=== PATIENT | female | born 2000 | race Caucasian/White ===

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

== ENCOUNTER 2021-01-02 20:12 | Emergency (ER) | payer OTHER ==
[~2021-01-02] VITALS: Ht 149.9 cm; Wt 60.3 kg
[2021-01-02 20:21] VITALS: BP 122/64
--- NOTE | 2021-01-02 20:22 | NUR ---
To Ed bed 02
--- NOTE | 2021-01-02 20:26 | NUR ---
see complete assessment.
[2021-01-02] MEDS ORDERED: KETOROLAC 30 MG/ML VIAL IVP ONE (21:20)
[2021-01-02 21:34] LABS: BASOPHILS % (AUTO) 0.2 % (0.0-2.0); EOSINOPHILS # (AUTO) 0.1 K/uL (0-0.4); EOSINOPHILS % (AUTO) 0.8 % (0.0-4.0); HEMATOCRIT 38.4 % (36-48); HEMOGLOBIN 12.9 g/dL (12.0-16.0); LYMPHOCYTES # (AUTO) 2.4 K/uL (2.5-16.5); LYMPHOCYTES % (AUTO) 25.8 % (20.5-51.1); MEAN CORPUSCULAR HEMOGLOBIN 30 pg (27-31); MEAN CORPUSCULAR HGB CONC 34 g/dL (33-37); MEAN CORPUSCULAR VOLUME 88.4 fL (80-94); MONOCYTES # (AUTO) 0.6 K/uL (0.8-1.0); MONOCYTES % (AUTO) 6.5 % (1.7-9.3); NEUTROPHILS # (AUTO) 6.3 K/uL (1.8-7.7); NEUTROPHILS % (AUTO) 66.7 % (42.2-75.2); PLATELET COUNT (AUTO) 332 K/uL (140-450); RED BLOOD CELL COUNT(AUTO) 4.34 MIL/uL (4.20-5.40); RED CELL DISTRIBUTION WIDTH 13.9 % (11.6-13.7); WHITE BLOOD COUNT (AUTO) 9.4 K/uL (4.5-11.0)
[2021-01-02] MEDS ORDERED: KETOROLAC 30 MG/ML VIAL IM ONE (21:35)
[2021-01-02 21:48] LABS: ALBUMIN 3.8 g/dL (3.4-5.0); ANION GAP 10.4 (8-16); CARBON DIOXIDE 30.3 mmol/L (21-32); CREATININE 0.6 mg/dL (0.6-1.3); POTASSIUM 3.7 mmol/L (3.5-5.1); TOTAL BILIRUBIN 0.2 mg/dL (0.0-1.0)
--- NOTE | 2021-01-02 21:58 | NUR ---
US at bedside.
[2021-01-02 23:31] VITALS: BP 121/71
--- NOTE | 2021-01-02 23:51 | NUR ---
Patient discharged with v/s stable. Written and verbal after care instructions given and explained. Patient verbalized understanding. Ambulatory with steady gait. All questions addressed prior to discharge. Advised to follow up with PMD.
== END 2021-01-02 23:51 | disposition home or self-care (01) ==
LOC: MED 20:12
DX: R10.2 Pelvic and perineal pain (principal)
CPT/HCPCS: 36415; 76856; 80053; 81002; 81025; 83690; 85025; 93976; 96372; 99284; J1885

== ENCOUNTER 2021-04-20 11:16 | Emergency (ER) | payer OTHER ==
[~2021-04-20] VITALS: Ht 144.8 cm; Wt 68.5 kg
[2021-04-20 11:26] VITALS: BP 125/69
--- NOTE | 2021-04-20 11:52 | NUR ---
DR ZHAO AT BEDSIDE EVALUATING PATIENT
--- NOTE | 2021-04-20 12:00 | NUR ---
21 Y/O FEMALE, 13 WKS, C/O DYSURIA AND RETENTION X 1 WEEK. DESCRIBED 5/10 BURNING SENSATION ACCOMPANIED BY FEELING OF INCOMPLETE EMPTYING. PT ALSO REPORTS 5/10 CRAMPING ABDOMINAL PAIN. DENIES HEMATURIA. DENIES FEVER, FLANK PAIN. NO MEDICATIONS TAKEN. PMH: NONE NKA
[2021-04-20] MEDS ORDERED: cephALEXin 500 MG CAP PO ONE (12:05)
[2021-04-20] MEDS ORDERED: CEPH-588 PO (12:06)
[2021-04-20 12:15] VITALS: BP 125/69
== END 2021-04-20 12:15 | disposition home or self-care (01) ==
LOC: MED 11:16
DX: O23.41 Unspecified infection of urinary tract in pregnancy, first trimester (principal); Z3A.12 12 weeks gestation of pregnancy
CPT/HCPCS: 81002; 81025; 87086; 99284

== ENCOUNTER 2021-05-23 17:14 | Emergency (ER) | payer OTHER ==
[~2021-05-23] VITALS: Ht 144.8 cm; Wt 70.3 kg
[~2021-05-23 17:14] MED LIST: CEPH-588 PO
[2021-05-23 17:41] VITALS: BP 124/64
--- NOTE | 2021-05-23 18:10 | NUR ---
SEEN AND EXAMINED BY GENNARO WITH ORDERS AND CARRIED OUT.
[2021-05-23 18:34] LABS: BASOPHILS # (AUTO) 0.1 K/uL (0.00-0.22); BASOPHILS % (AUTO) 0.7 % (0.0-2.0); EOSINOPHILS % (AUTO) 0.3 % (0.0-4.0); HEMATOCRIT 37.6 % (36-48); HEMOGLOBIN 12.8 g/dL (12.0-16.0); LYMPHOCYTES # (AUTO) 2.1 K/uL (2.5-16.5); LYMPHOCYTES % (AUTO) 18.5 % (20.5-51.1); MEAN CORPUSCULAR HEMOGLOBIN 30 pg (27-31); MEAN CORPUSCULAR HGB CONC 34 g/dL (33-37); MEAN CORPUSCULAR VOLUME 89.1 fL (80-94); MONOCYTES # (AUTO) 0.6 K/uL (0.8-1.0); MONOCYTES % (AUTO) 5.2 % (1.7-9.3); NEUTROPHILS # (AUTO) 8.4 K/uL (1.8-7.7); NEUTROPHILS % (AUTO) 75.3 % (42.2-75.2); PLATELET COUNT (AUTO) 308 K/uL (140-450); RED BLOOD CELL COUNT(AUTO) 4.23 MIL/uL (4.20-5.40); RED CELL DISTRIBUTION WIDTH 14.4 % (11.6-13.7); WHITE BLOOD COUNT (AUTO) 11.2 K/uL (4.5-11.0)
[2021-05-23 18:51] LABS: ALBUMIN 3.4 g/dL (3.4-5.0); ANION GAP 12.3 (8-16); CARBON DIOXIDE 25.1 mmol/L (21-32); CREATININE 0.4 mg/dL (0.6-1.3); POTASSIUM 3.4 mmol/L (3.5-5.1); TOTAL BILIRUBIN 0.2 mg/dL (0.0-1.0)
--- NOTE | 2021-05-23 20:00 | NUR ---
ALL RESULTS BACK AND NOTED BY ERMArielle
[2021-05-23] MEDS ORDERED: CEPH-588 PO (20:05)
[2021-05-23 20:10] VITALS: BP 124/64
== END 2021-05-23 20:10 | disposition home or self-care (01) ==
LOC: MED 17:14
DX: O20.8 Other hemorrhage in early pregnancy (principal); Z3A.17 17 weeks gestation of pregnancy; Z79.899 Other long term (current) drug therapy
CPT/HCPCS: 36415; 76805; 80053; 81025; 85025; 86900; 86901; 99284

== ENCOUNTER 2021-08-19 20:30 | Observation (INO) | payer OTHER, SELFPAY ==
[~2021-08-19] VITALS: Ht 149.9 cm; Wt 70.3 kg
[2021-08-19] MEDS ORDERED: BETAMETH ACET/BETAMETH NA PH 30 MG/5 ML VIAL IM SCH (21:35)
[2021-08-19] MEDS ORDERED: LACTATED RINGERS 1,000 ML IV SCH (21:35)
== END 2021-08-19 22:08 | disposition left against medical advice (07) ==
LOC: MLD 20:30
PROVIDERS: ADMIT Obstetrics & Gynecology; ATTEND Obstetrics & Gynecology
DX: O62.9 Abnormality of forces of labor, unspecified (principal); Z3A.29 29 weeks gestation of pregnancy; Z53.21 Procedure and treatment not carried out due to patient leaving prior to being seen by health care provider
CPT/HCPCS: 76815; G0378; G0379; Q0092

== ENCOUNTER 2022-12-05 11:37 | Emergency (ER) | payer OTHER ==
[~2022-12-05] VITALS: Ht 143 cm; Wt 73.0 kg
[2022-12-05 12:02] VITALS: BP 116/70
[2022-12-05 12:37] LABS: APPEARANCE,URINE CLEAR (CLEAR); BILIRUBIN,URINE NEGATIVE (NEGATIVE); BLOOD, URINE 1+ (NEGATIVE); COLOR,URINE YELLOW (YELLOW); LEUKOCYTE ESTERASE ,URINE 1+ (NEGATIVE); NITRITE, URINE NEGATIVE (NEGATIVE); UGLUCOSE NEGATIVE (NEGATIVE)
[2022-12-05 12:55] LABS: RBC,URINE 11-20 (MOD) /HPF (0-5)
--- NOTE | 2022-12-05 13:01 | NUR ---
22 y/o female bib self, c/o 03/26 dysuria and vaginal itching. pmh: denies nka med: denies
[2022-12-05] MEDS ORDERED: FLUC100T PO (13:12)
[2022-12-05] MEDS ORDERED: NITR100C7 PO (13:12)
[2022-12-05 13:15] VITALS: BP 18/68
--- NOTE | 2022-12-05 13:15 | NUR ---
Patient discharged with v/s stable. Written and verbal after care instructions given and explained. Patient alert, oriented and verbalized understanding of instructions. Ambulatory with steady gait. All questions addressed prior to discharge. ID band removed. Patient advised to follow up with PMD. Rx of MACROBID, DIFLUCAN given. Patient educated on indication of medication including possible reaction and side effects. Opportunity to ask questions provided and answered.
== END 2022-12-05 13:15 | disposition home or self-care (01) ==
LOC: MED 11:37
DX: N39.0 Urinary tract infection, site not specified (principal); Z79.899 Other long term (current) drug therapy; Z79.2 Long term (current) use of antibiotics
CPT/HCPCS: 81001; 81025; 87086; 99283

== ENCOUNTER 2023-11-10 18:20 | Emergency (ER) | payer OTHER ==
[~2023-11-10] VITALS: Ht 144.8 cm; Wt 72.6 kg
[~2023-11-10 18:20] MED LIST changes: -CEPH-588 PO; +FLUC100T PO; +NITR100C7 PO
[2023-11-10 18:28] VITALS: BP 130/74; PULSE 80; RESP 17; TEMP 97.3; O2SAT 98
[2023-11-10 19:42] LABS: BASOPHILS # (AUTO) 0.1 K/uL (0.00-0.22); BASOPHILS % (AUTO) 0.9 % (0.0-2.0); EOSINOPHILS # (AUTO) 0.1 K/uL (0-0.4); EOSINOPHILS % (AUTO) 0.7 % (0.0-4.0); HEMATOCRIT 38.2 % (36-48); HEMOGLOBIN 12.9 g/dL (12.0-16.0); LYMPHOCYTES # (AUTO) 2.9 K/uL (2.5-16.5); LYMPHOCYTES % (AUTO) 26.3 % (20.5-51.1); MEAN CORPUSCULAR HEMOGLOBIN 29 pg (27-31); MEAN CORPUSCULAR HGB CONC 34 g/dL (33-37); MEAN CORPUSCULAR VOLUME 85.7 fL (80-94); MONOCYTES # (AUTO) 0.7 K/uL (0.8-1.0); MONOCYTES % (AUTO) 5.9 % (1.7-9.3); NEUTROPHILS # (AUTO) 7.3 K/uL (1.8-7.7); NEUTROPHILS % (AUTO) 66.2 % (42.2-75.2); PLATELET COUNT (AUTO) 341 K/uL (140-450); RED BLOOD CELL COUNT(AUTO) 4.46 MIL/uL (4.20-5.40); RED CELL DISTRIBUTION WIDTH 14.7 % (11.6-13.7); WHITE BLOOD COUNT (AUTO) 11.1 K/uL (4.8-10.8)
[2023-11-10 19:43] LABS: APPEARANCE,URINE SL CLOUDY (CLEAR); BILIRUBIN,URINE NEGATIVE (NEGATIVE); BLOOD, URINE 3+ (NEGATIVE); COLOR,URINE BROWN (YELLOW); LEUKOCYTE ESTERASE ,URINE NEGATIVE (NEGATIVE); NITRITE, URINE NEGATIVE (NEGATIVE); PROTEIN,URINE 2+ (NEGATIVE); UGLUCOSE 3+ (NEGATIVE); UROBILINOGEN,URINE 0.2 EU/dL (0.2 - 1)
[2023-11-10 19:48] LABS: BACTERIA,URINE FEW /HPF (None Seen); RBC,URINE 11-20 (MOD) /HPF (0-5); SQUAMOUS EPITHELIAL CELL,UR 0-3 (FEW) /LPF (0-3 (FEW)); WBC,URINE 0-5 /HPF (0-5)
[2023-11-10] MEDS ORDERED: ACETAMINOPHEN EXTRA STRENGTH 500 MG TAB PO ONE (21:10)
== END 2023-11-10 21:30 | disposition home or self-care (01) ==
LOC: MED 18:20
DX: O20.0 Threatened abortion (principal); Z3A.01 Less than 8 weeks gestation of pregnancy
CPT/HCPCS: 36415; 76817; 81001; 84702; 85025; 86900; 86901; 99284; Q0092

== ENCOUNTER 2024-04-29 08:23 | Observation (INO) | payer OTHER ==
[~2024-04-29] VITALS: Ht 149.9 cm; Wt 74.8 kg
[2024-04-29] MEDS: LACTATED RINGERS 500 ML IV ONE (10:00)
[2024-04-29 11:14] LABS: BASOPHILS % (AUTO) 0.3 % (0.0-2.0); EOSINOPHILS % (AUTO) 0.1 % (0.0-4.0); HEMATOCRIT 34.6 % (36-48); HEMOGLOBIN 11.6 g/dL (12.0-16.0); LYMPHOCYTES # (AUTO) 1.5 K/uL (2.5-16.5); LYMPHOCYTES % (AUTO) 18.1 % (20.5-51.1); MEAN CORPUSCULAR HEMOGLOBIN 28 pg (27-31); MEAN CORPUSCULAR HGB CONC 34 g/dL (33-37); MEAN CORPUSCULAR VOLUME 83.6 fL (80-94); MONOCYTES # (AUTO) 0.4 K/uL (0.8-1.0); MONOCYTES % (AUTO) 4.7 % (1.7-9.3); NEUTROPHILS # (AUTO) 6.4 K/uL (1.8-7.7); NEUTROPHILS % (AUTO) 76.8 % (42.2-75.2); PLATELET COUNT (AUTO) 304 K/uL (140-450); RED BLOOD CELL COUNT(AUTO) 4.14 MIL/uL (4.20-5.40); RED CELL DISTRIBUTION WIDTH 13.3 % (11.6-13.7); WHITE BLOOD COUNT (AUTO) 8.3 K/uL (4.8-10.8)
[2024-04-29 11:23] LABS: APPEARANCE,URINE HAZY (CLEAR); BILIRUBIN,URINE NEGATIVE (NEGATIVE); BLOOD, URINE TRACE-I (NEGATIVE); COLOR,URINE YELLOW (YELLOW); LEUKOCYTE ESTERASE ,URINE 1+ (NEGATIVE); NITRITE, URINE NEGATIVE (NEGATIVE); PH,URINE 6.5 (5.0-9.0); PROTEIN,URINE 1+ (NEGATIVE); UGLUCOSE 1+ (NEGATIVE)
[2024-04-29 11:34] LABS: ALBUMIN 2.5 g/dL (3.4-5.0); ANION GAP 10.2 (8-16); CALCIUM 8.4 mg/dL (8.5-10.1); CARBON DIOXIDE 24.8 mmol/L (21-32); CREATININE 0.4 mg/dL (0.6-1.3); TOTAL BILIRUBIN 0.3 mg/dL (0.0-1.0); TOTAL PROTEIN, SERUM 6.3 g/dL (6.4-8.2)
[2024-04-29] MEDS: LACTATED RINGERS 1,000 ML IV SCH (11:45)
[2024-04-29 11:53] LABS: BACTERIA,URINE 2+ /HPF (None Seen); RBC,URINE 0-5 /HPF (0-5)
[2024-04-29 11:54] LABS: MUCUS,URINE 1+ /LPF (None Seen); SQUAMOUS EPITHELIAL CELL,UR 4-10 (MOD) /LPF (0-3 (FEW)); URINE AMORPHOUS URATE 1+ /HPF (None Seen)
[2024-04-29] MEDS: cefTRIAXone 1,000 MG VIAL ONE (12:39)
== END 2024-04-29 13:20 | disposition home or self-care (01) ==
LOC: MLD 08:23
PROVIDERS: ADMIT Obstetrics & Gynecology; ATTEND Obstetrics & Gynecology
DX: O26.893 Other specified pregnancy related conditions, third trimester (principal); R10.30 Lower abdominal pain, unspecified; O24.410 Gestational diabetes mellitus in pregnancy, diet controlled; Z3A.32 32 weeks gestation of pregnancy
CPT/HCPCS: 36415; 76805; 76817; 80053; 81001; 82948; 85025; 87086; 96360; 96361; G0378; J0696; Q0092

== ENCOUNTER 2024-06-13 09:50 | Inpatient (IN) | payer OTHER ==
[~2024-06-13] VITALS: Ht 149.9 cm; Wt 76.2 kg
[2024-06-13] MEDS ORDERED: CARBOPROST 250 MCG/ML AMP IM PRN (10:00)
[2024-06-13] MEDS ORDERED: METHYLERGONOVINE 0.2 MG/ML AMP IM PRN (10:00)
[2024-06-13] MEDS ORDERED: LACTATED RINGERS 500 ML IV SCH (10:00)
[2024-06-13] MEDS ORDERED: OXYTOCIN 10 UNITS/ML VIAL IM SCH (10:00)
[2024-06-13] MEDS ORDERED: MORPHINE SULFATE 10 MG/ML VIAL IVP PRN (10:30)
[2024-06-13] MEDS ORDERED: AMPICILLIN 2,000 MG VIAL ONE (10:41)
[2024-06-13 10:49] LABS: APPEARANCE,URINE CLEAR (CLEAR); BILIRUBIN,URINE 2+ (NEGATIVE); BLOOD, URINE 2+ (NEGATIVE); COLOR,URINE YELLOW (YELLOW); LEUKOCYTE ESTERASE ,URINE 1+ (NEGATIVE); NITRITE, URINE NEGATIVE (NEGATIVE); PROTEIN,URINE 2+ (NEGATIVE); UGLUCOSE NEGATIVE (NEGATIVE)
[2024-06-13] MEDS: LACTATED RINGERS 1,000 ML IV SCH (10:50)
[2024-06-13] MEDS: AMPICILLIN 2,000 MG in NACL 0.9% 100 ML IV SCH (10:52)
[2024-06-13 10:53] LABS: BASOPHILS % (AUTO) 0.2 % (0.0-2.0); EOSINOPHILS % (AUTO) 0.2 % (0.0-4.0); HEMOGLOBIN 11.7 g/dL (12.0-16.0); LYMPHOCYTES # (AUTO) 1.3 K/uL (2.5-16.5); LYMPHOCYTES % (AUTO) 21.4 % (20.5-51.1); MEAN CORPUSCULAR HEMOGLOBIN 26 pg (27-31); MEAN CORPUSCULAR HGB CONC 33 g/dL (33-37); MEAN CORPUSCULAR VOLUME 78.6 fL (80-94); MONOCYTES # (AUTO) 0.2 K/uL (0.8-1.0); MONOCYTES % (AUTO) 3.8 % (1.7-9.3); NEUTROPHILS # (AUTO) 4.6 K/uL (1.8-7.7); NEUTROPHILS % (AUTO) 74.4 % (42.2-75.2); PLATELET COUNT (AUTO) 203 K/uL (140-450); RED BLOOD CELL COUNT(AUTO) 4.58 MIL/uL (4.20-5.40); RED CELL DISTRIBUTION WIDTH 14.7 % (11.6-13.7); WHITE BLOOD COUNT (AUTO) 6.2 K/uL (4.8-10.8)
[2024-06-13 11:02] LABS: BACTERIA,URINE 2+ /HPF (None Seen); ICTOTEST NEGATIVE (NEGATIVE); RBC,URINE 11-20 (MOD) /HPF (0-5); SQUAMOUS EPITHELIAL CELL,UR 4-10 (MOD) /LPF (0-3 (FEW))
[2024-06-13 11:03] LABS: MUCUS,URINE 2+ /LPF (None Seen)
[2024-06-13 11:10] LABS: ALBUMIN 2.3 g/dL (3.4-5.0); ANION GAP 16.2 (8-16); CALCIUM 8.6 mg/dL (8.5-10.1); CARBON DIOXIDE 22.9 mmol/L (21-32); CREATININE 0.6 mg/dL (0.6-1.3); POTASSIUM 4.1 mmol/L (3.5-5.1); TOTAL BILIRUBIN 0.6 mg/dL (0.0-1.0); TOTAL PROTEIN, SERUM 6.5 g/dL (6.4-8.2)
[2024-06-13] MEDS ORDERED: ROPIVACAINE 0.2%/NS PREMIX 200 ML EPI ONE (11:22)
[2024-06-13 11:30] LABS: INR 0.84 (0.8-1.2); PROTHROMBIN TIME 8.9 secs (10.8-13.4)
[2024-06-13 13:31] VITALS: BP 130/85; PULSE 90; RESP 18; TEMP 97.9
[2024-06-13] MEDS ORDERED: AMPICILLIN 1,000 MG VIAL ONE (15:01)
[2024-06-13] MEDS: AMPICILLIN 1,000 MG in NACL 0.9% MINI-BAG PLUS 50 ML IV SCH (15:03)
[2024-06-13] MEDS ORDERED: OXYTOCIN/0.9 % SODIUM CHLORIDE 500 ML IV ONE ×2 (16:38→20:30)
[2024-06-13] MEDS ORDERED: BENZOCAINE/MENTHOL 20%-0.5% 60 GM CAN TP PRN (17:40)
[2024-06-13] MEDS ORDERED: TEMAZEPAM 15 MG CAP PO PRN (17:40)
[2024-06-13] MEDS ORDERED: IBUPROFEN 800 MG TAB PO PRN (17:40)
[2024-06-13] MEDS ORDERED: MEASLES, MUMPS, AND RUBELLA 1 VIAL SQVAC ONE (17:40)
[2024-06-13] MEDS ORDERED: SODIUM PHOSPHATE 118 ML ENEM RC SCH (17:40)
[2024-06-13] MEDS ORDERED: OXYTOCIN 10 UNITS/ML VIAL IM PRN (17:40)
[2024-06-13] MEDS ORDERED: SODIUM PHOSPHATE 118 ML ENEM RC PRN ×2 (17:59→18:00)
[2024-06-13] MEDS: ONDANSETRON 4 MG/2 ML VIAL IVP PRN (20:05)
[2024-06-13] MEDS: METHYLERGONOVINE 0.2 MG/ML AMP IM PRN (20:06)
[2024-06-13] MEDS: oxyCODONE/APAP 5/325 MG 1 TAB TAB PO PRN (20:40)
[2024-06-13] MEDS ORDERED: DOCUSATE SOD/SENNA 50/8.6 MG 1 TAB PO SCH (21:00)
[2024-06-13] MEDS: OXYTOCIN/0.9 % SODIUM CHLORIDE 500 ML IV SCH (21:47)
[2024-06-14 05:53] LABS: HEMOGLOBIN 7.8 g/dL (12.0-16.0)
[2024-06-14] MEDS ORDERED: LACTATED RINGERS 1,000 ML IV SCH (12:26)
[2024-06-14] MEDS: LACTATED RINGERS 1,000 ML IV ONE (13:28)
[2024-06-14] MEDS: SODIUM FERRIC GLUCONATE 125 MG in NACL 0.9% 100 ML IV SCH (14:37)
[2024-06-15] MEDS ORDERED: MEDS-TO-BEDS MC SCH (21:00)
== END 2024-06-15 15:10 | disposition home or self-care (01) | DRG 560 ==
LOC: MLD 09:50 → MFCC 22:48
PROVIDERS: ADMIT Obstetrics & Gynecology; ATTEND Obstetrics & Gynecology
PROC: 10E0XZZ Delivery of Products of Conception, External Approach (ICD-10-PCS; principal; 2024-06-13)
PROC: 0HQ9XZZ Repair Perineum Skin, External Approach (ICD-10-PCS; 2024-06-13)
PROC: 3E0234Z Introduction of Serum, Toxoid and Vaccine into Muscle, Percutaneous Approach (ICD-10-PCS; 2024-06-13)
DX: O24.420 Gestational diabetes mellitus in childbirth, diet controlled (principal); Z37.0 Single live birth; O70.0 First degree perineal laceration during delivery; O99.824 Streptococcus B carrier state complicating childbirth; Z3A.39 39 weeks gestation of pregnancy
CPT/HCPCS: 36415; 59409; 80053; 81001; 85018; 85025; 85610; 85730; 86592; 86886; 86900; 86901; 87086; J0290; J2210; J2270; J2405; J2590; J2795; J2916